=== PATIENT | female | born 1995 | race Caucasian/White ===

== ENCOUNTER 2021-06-16 08:40 | Inpatient (IN) | payer BC ==
[~2021-06-16] VITALS: Ht 170.2 cm; Wt 91.0 kg
[2021-06-16] MEDS ORDERED: AZO-95TA3 PO (08:49)
[2021-06-16] MEDS ORDERED: VITA100T28 PO (08:49)
[2021-06-16] MEDS ORDERED: PROZ10CA7 PO (08:49)
[2021-06-16] MEDS ORDERED: MULTTAB20 PO (08:49)
[2021-06-16] MEDS ORDERED: LORA-930 PO (08:49)
[2021-06-16] MEDS ORDERED: [UNRECOGNIZED DRUG - CODE] PO (08:49)
[2021-06-16] MEDS ORDERED: ONDA8TAB8 PO (08:49)
[2021-06-16] MEDS ORDERED: ADDE20CA3 PO (08:49)
[2021-06-16] MEDS: THIAMINE 100 MG TAB PO SCH (09:00)
[2021-06-16] MEDS: PRENATAL VITAMINS CHEWABLE TABLET PO SCH (09:00)
[2021-06-16 10:18] LABS: BASO % 0.3 % (0.0-1.0); EOS % 0.2 % (0.0-3.0); HEMOGLOBIN 13.2 g/dl (12.0-15.5); LYMPH # 0.4 10^3/uL (1.5-5.0); LYMPH % 3.4 % (24.0-44.0); MEAN CORPUSCULAR HEMOGLOBIN 32.3 pg (27.0-33.0); MEAN CORPUSCULAR HGB CONC 34.7 g/dl (32.0-36.5); MEAN CORPUSCULAR VOLUME 92.9 fl (80.0-96.0); MONO # 0.4 10^3/uL (0.0-0.8); MONO % 3.5 % (2.0-8.0); NEUTROPHILS # 9.5 10^3/uL (1.5-8.5); PLATELET COUNT, AUTOMATED 221 10^3/uL (150-450); RED BLOOD COUNT 4.09 10^6/uL (4.00-5.40); WHITE BLOOD COUNT 10.3 10^3/uL (4.0-10.0)
[2021-06-16 10:42] LABS: ALBUMIN 3.6 GM/DL (3.2-5.2); ALT/SGPT 38 U/L (12-78); BILIRUBIN,DIRECT 0.1 MG/DL (0.0-0.2); BILIRUBIN,TOTAL 0.4 MG/DL (0.2-1.0); BLOOD UREA NITROGEN 9 MG/DL (7-18); CALCIUM LEVEL 8.7 MG/DL (8.5-10.1); CARBON DIOXIDE LEVEL 25 MEQ/L (21-32); CHLORIDE LEVEL 108 MEQ/L (98-107); GLOMERULAR FILTRATION RATE > 60.0 (>60); GLUCOSE, FASTING 93 MG/DL (70-100); LIPASE 46 U/L (73-393); POTASSIUM SERUM 4.3 MEQ/L (3.5-5.1); SODIUM LEVEL 137 MEQ/L (136-145); TOTAL PROTEIN 6.5 GM/DL (6.4-8.2)
[2021-06-16] MEDS ORDERED: diphenhydrAMINE 50MG/ML VIAL (J1200) IV STA (11:20)
[2021-06-16] MEDS ORDERED: METOCLOPRAMIDE INJ 10MG/2ML VIAL (J2765 PER 1) IV ONE (11:20)
[2021-06-16] MEDS ORDERED: NS 1,000 ML IV ONE ×2 (11:20→15:55)
[2021-06-16] MEDS ORDERED: cefTRIAXone SOD 1 GM in D5W MINI-BAG PLUS 50 ML IV ONE (12:35)
[2021-06-16] MEDS ORDERED: PROMETHAZINE 25MG/ML 1ML VIAL IV ONE (12:35)
[2021-06-16 13:55] LABS: RSV AMPLIFICATION NEGATIVE (NEGATIVE)
[2021-06-16 14:34] LABS: HCG, SERUM QUANTITATIVE 17465 MIU/ML
[2021-06-16] MEDS ORDERED: DICL10TA PO (14:45)
[2021-06-16] MEDS ORDERED: PROM12.56 PO (14:45)
[2021-06-16] MEDS ORDERED: ONDA4TAB6 PO (14:45)
[2021-06-16] MEDS ORDERED: HOME MED LIST COMPLETE! XX SCH (14:50)
[2021-06-16] MEDS ORDERED: CALCIUM CARBONATE 500 MG CHEW U/D PO ONE (14:55)
[2021-06-16] MEDS ORDERED: REGL5TAB2 PO (15:14)
[2021-06-16] MEDS ORDERED: MACR100C43 PO (15:14)
[2021-06-16] MEDS ORDERED: ONDANSETRON 4MG/2ML VIAL IV ONE (15:30)
[2021-06-16] MEDS ORDERED: NS 1,000 ML IV SCH (15:45)
[2021-06-16] MEDS ORDERED: ONDANSETRON 4MG/2ML VIAL IV PRN (15:55)
[2021-06-16 16:55] VITALS: BP 123/64
[2021-06-16] MEDS: D5W/0.45% SODIUM CHLORIDE 1,000 ML IV SCH (17:58)
[2021-06-16] MEDS ORDERED: PROMETHAZINE 25MG/ML 1ML VIAL IV PRN (19:00)
[2021-06-16] MEDS: PROMETHAZINE 25MG SUPP PR SCH (19:26)
[2021-06-16 20:00] VITALS: BP 123/67
[2021-06-16] MEDS: ACETAMINOPHEN TAB 650MG DOSE (2X325MG) PO PRN (20:52)
[2021-06-16] MEDS: PHENAZOPYRIDINE 100 MG TAB PO SCH (20:53)
[2021-06-16] MEDS ORDERED: FLUoxetine 10 MG CAP PO SCH (21:00)
[2021-06-17] VITALS: BP 128/56
[2021-06-17] MEDS: PROMETHAZINE 25MG SUPP PR SCH ×2 (00:10→06:20)
[2021-06-17] MEDS: D5W/0.45% SODIUM CHLORIDE 1,000 ML IV SCH (03:00)
[2021-06-17 04:00] VITALS: BP 128/62
[2021-06-17] MEDS: PHENAZOPYRIDINE 100 MG TAB PO SCH ×2 (06:20→14:26)
[2021-06-17 08:30] VITALS: BP 123/69
[2021-06-17] MEDS: THIAMINE 100 MG TAB PO SCH (08:51)
[2021-06-17] MEDS: PRENATAL VITAMINS CHEWABLE TABLET PO SCH (08:51)
[2021-06-17] MEDS ORDERED: LORATADINE 10 MG TAB PO SCH (09:00)
[2021-06-17] MEDS ORDERED: PROMETHAZINE 25 MG TAB PO PRN (11:20)
[2021-06-17] MEDS ORDERED: PROM1SUP2 PR (12:13)
[2021-06-17 12:21] LABS: BILIRUBIN, URINE MANUAL OBSCURED (NEGATIVE); GLUCOSE, URINE (UA) MANUAL NEGATIVE (NEGATIVE); KETONE, URINE MANUAL OBSCURED mg/dL (NEGATIVE); UROBILINOGEN, URINE MANUAL OBSCURED mg/dl (NORMAL)
[2021-06-17 12:29] LABS: BACTERIA, URINE NONE SEEN; RBC, URINE NONE SEEN /hpf (0-3); SQUAMOUS EPITHELIAL CELL URINE SMALL AMOUNT /hpf (SMALL AMT)
[2021-06-17 12:30] LABS: HYALINE CAST, URINE NONE SEEN /lpf (0-1)
[2021-06-17] MEDS ORDERED: cefTRIAXone SOD 1 GM in D5W MINI-BAG PLUS 50 ML IV SCH (13:00)
[2021-06-17] MEDS ORDERED: FOSFOMYCIN TROMETHAMINE 3 GM POWDER PACKET (MONUROL) PO ONE (14:00)
[2021-06-17] MEDS: ACETAMINOPHEN TAB 650MG DOSE (2X325MG) PO PRN (14:30)
[2021-06-17 15:57] VITALS: BP 108/58
== END 2021-06-17 16:30 | disposition home or self-care (01) | DRG 566 ==
LOC: M ED 08:40 → M ED INP 15:43 → ENRESERV 16:06 → M PED 16:50
PROVIDERS: ADMIT General Practice; ATTEND General Practice
DX: O21.0 Mild hyperemesis gravidarum (principal); Z88.8 Allergy status to other drugs, medicaments and biological substances; Z3A.17 17 weeks gestation of pregnancy; R82.71 Bacteriuria